=== PATIENT | male | born 1955 | race Caucasian/White ===

== ENCOUNTER 2021-12-18 01:57 | Emergency (ER) | payer OTHER ==
[2021-12-18 03:19] LABS: BASOPHIL 0.5 % (0-2); EOSINOPHIL 2.7 % (0-7); HCT 39.9 % (42.0-52.0); HGB 14.2 g/dl (13.2-18.0); LYMPHOCYTE 19.9 % (15-48); MCH 31.1 pg (25.0-31.0); MCHC 35.6 g/dL (32.0-36.0); MCV 87.3 fL (78.0-100.0); MONOCYTE 9.3 % (0-12); MPV 9.2 fL (6.0-9.5); NEUTROPHIL 67.3 % (41-80); NRBC 0; PLT 268 K/uL (150-400); RBC 4.57 M/uL (4.70-6.00); RDW 12.5 % (11.5-14.0); WBC 6.4 K/uL (4.0-10.5)
[2021-12-18 03:40] LABS: ALBUMIN 3.7 g/dL (3.4-5.0); BILIRUBIN - TOTAL 0.4 mg/dL (0.2-1.0); BUN/CREAT RATIO (CALC) 12.7 RATIO; CREATININE 0.79 mg/dL (0.67-1.17); GLOBULIN (CALCULATION) 3.2 g/dL; POTASSIUM 3.8 mmol/L (3.5-5.1); TOTAL PROTEIN 6.9 g/dL (6.4-8.2)
== END 2021-12-18 06:35 | disposition still patient (30) ==
LOC: FER 01:57
PROVIDERS: Emergency Medicine
DX: R07.89 Other chest pain (principal); I10 Essential (primary) hypertension; Z88.8 Allergy status to other drugs, medicaments and biological substances; Z79.899 Other long term (current) drug therapy
CPT/HCPCS: 36415; 71045; 80053; 83880; 84484; 85025; 85379; 93005